=== PATIENT | female | born 1985 | race Two or more races ===

== ENCOUNTER 2016-07-20 09:56 | Emergency (ER) | payer OTHER ==
[~2016-07-20] VITALS: Ht 152.4 cm; Wt 79.4 kg
[~2016-07-20 09:56] MED LIST: IBUPROFEN600 MG ORAL; NORCO 5-325 TA1 EAC1 ORAL
[2016-07-20] MEDS ORDERED: NKM (10:15)
[2016-07-20 10:19] VITALS: BP 133/64
[2016-07-20] MEDS ORDERED: DiphenhydrAMINE 50mg/ml Inj IVP ONE (11:00)
[2016-07-20] MEDS ORDERED: Ketorolac 30mg Inj IV ONE (11:00)
--- NOTE | 2016-07-20 12:15 | Diagnostic Imaging Report ---
Indications: Back pain. Technique: 3 views of the lumbar spine Findings: Comparison: None Vertebral alignment is intact. No fracture, lytic destruction, or other acute changes are demonstrated. No degenerative changes, deformity, or other chronic changes are demonstrated. IMPRESSION: Negative lumbar spine series.
[2016-07-20] MEDS ORDERED: IBUPROFEN600 MG ORAL (13:49)
--- NOTE | 2016-07-20 13:50 | Emergency Room Report ---
History of Present Illness General Chief Complaint: Headache Source: Patient Present Illness HPI This patient states that she has a history of chronic and recurrent back pain. She states that she believes that is chronic nerve pain. She does not take any medications for the pain. She usually will rest or get a massage. She does occasionally get migraine headaches. She states that yesterday she developed a migraine headache and then her chronic nerve of her back and leg started bothering her. She states she is unable to get comfortable last night. She did not take any oral medications. She states that she does not like to take pills. She has gone to a chiropractor in the past. She states that the pain is in her back and radiates down her legs. She states the pain is occasionally worse on the right and radiates to her right knee. She also has had improvement in her headache but still continues to have a low-grade headache. She denies recent illness. She denies cough or congestion. She denies fever or chills. She denies dysuria or hematuria. She has no other complaints. Allergies: Coded Allergies: No Known Allergies (Unverified , 03/28/15) Patient History Past Medical History: see triage record, other - Chronic back pain Social History: Denies: alcohol use, drug use, smoking Last Menstrual Period: 2 weeks ago Reviewed Nursing Documentation: PMH: Agreed, PSxH: Agreed Nursing Documentation-[facility] Past Medical History: No History, Except For Hx Neurological Problems: Yes - Nerve pain, chronic back pain Review of Systems All Other Systems: negative except mentioned in HPI Physical Exam Vital Signs Date Time Temp Pulse Resp B/P Pulse Ox O2 Delivery O2 Flow Rate FiO2 07/20/16 10:07 98.2 102 18 133/64 95 Room Air Sp02 EP Interpretation: reviewed, normal General Appearance: no apparent distress, alert, GCS 15, non-toxic Head: normocephalic, atraumatic Eyes: bilateral eye PERRL, bilateral eye normal inspection ENT: hearing grossly normal, normal pharynx, no angioedema, normal voice Neck: full range of motion, supple/symm/no masses Respiratory: chest non-tender, lungs clear, normal breath sounds, speaking full sentences Cardiovascular #1: regular rate, rhythm, no edema Gastrointestinal: normal bowel sounds, non tender, soft, non-distended, no guarding, no rebound Rectal: deferred Musculoskeletal: back normal, normal range of motion, non-tender Neurologic: alert, oriented x3, responsive, motor strength/tone normal, sensory intact, speech normal Psychiatric: judgement/insight normal, memory normal, mood/affect normal, no suicidal/homicidal ideation Skin: normal color, no rash, warm/dry, well hydrated Medical Decision Making Diagnostic Impression: Primary Impression: Migraine Additional Impressions: Mechanical back pain Sciatica ER Course This patient presents with 2 complaints. She has a migraine headache and aggravation of her chronic low back pain with features consistent with sciatica. She hadn't ever had an image of her back, so I did obtain a lumbar spine x-ray. This was negative for acute findings. Educated the patient that she should followup with her primary care physician or an orthopedist. She may need to undergo MRI of her lumbar spine if she continues to have recurrent symptoms. This patient is a clinical presentation consistent with migraine. The patient was treated with Compazine, Benadryl, Toradol and 1 liter of normal saline. The patient had complete resolution of the headache. There were no red flags on physical exam or history. I do not suspect meningitis, intracranial bleed, sinusitis. No emergency medical condition was identified. The patient was given return precautions and followup instructions. This patient has a clinical presentation consistent with mechanical back pain. There are no red flags on physical exam. The patient denies any concerning features such as trauma, fevers, night sweats, history of malignancy, pain worse at night, IV drug abuse, urinary/fecal incontinence or retention, focal weakness or change in sensation, or refractory pain. Given these pertinent negatives in the history and physical exam an emergent cause of the back pain such as epidural abscess, metastasis to bone, cauda equina syndrome, and fracture is less likely. I also doubt emergent cardiovascular cause of back pain such as aortic dissection a ruptured abdominal aortic aneurysm given patient with equal pulses in all 4 extremities with no diastolic murmur or pulsatile abdominal mass. The patient was counseled that, though unlikely, the possibility of an emergent cause of back pain may still be present and that the patient should return immediately if symptoms persist or worsen. The symptoms are reproducible with movement. Patient had a benign evaluation and neurologic examination. No emergency etiology was identified. Labs Test 07/20/16 11:00 Urine HCG, Qualitative Negative Other X-Ray Diagnostic Results Other X-Ray Diagnostic Results : X-Ray Ordered: Lumbar spine xray EP Interpretation: No Findings: no fractures Number of Views: 4 Other Impression See official report Last Vital Signs Date Time Temp Pulse Resp B/P Pulse Ox O2 Delivery O2 Flow Rate FiO2 07/20/16 11:52 98.2 07/20/16 10:19 82 18 133/64 95 Room Air Disposition: HOME, SELF-CARE Condition: Improved Scripts Ibuprofen* (MOTRIN*) 600 Mg Tablet 600 MG ORAL Q8H Y for For Pain, #30 TAB 0 Refills Prov: RAYNA COBOS D.O. 07/20/16 [facility]: [facility]ERR[facility] (PCP[facility] Patient Instructions: Migraine Headache, Sciatica, [id number] RAYNA COBOS D.O. Jul 20, 2016 13:49
[2016-07-20 14:10] VITALS: BP 129/62
[2016-07-20 14:12] VITALS: BP 129/62
== END 2016-07-20 14:12 | disposition home or self-care (01) ==
LOC: EMR 10:30
DX: M54.30 Sciatica, unspecified side (principal); G43.909 Migraine, unspecified, not intractable, without status migrainosus
CPT/HCPCS: 72020; 81025; 96374; 96375; 99284; J0780; J1200; J1885

== ENCOUNTER 2016-07-22 12:30 | Emergency (ER) | payer MEDICAID, OTHER ==
[~2016-07-22] VITALS: Ht 152.4 cm; Wt 79.4 kg
[~2016-07-22 12:30] MED LIST changes: +NKM
[2016-07-22] MEDS ORDERED: Famotidine 20 MG/ 2ML VIAL IVP ONE (13:15)
[2016-07-22] MEDS ORDERED: DiphenhydrAMINE 50mg/ml Inj IV ONE (13:15)
[2016-07-22] MEDS ORDERED: PredniSONE 20mg tab ORAL ONE (13:15)
[2016-07-22 13:47] VITALS: BP 95/57
[2016-07-22] MEDS ORDERED: PREDNISONE20 M1 PO (14:13)
[2016-07-22] MEDS ORDERED: BENADRYL ALLERG25 M1 PO (14:13)
[2016-07-22 14:29] VITALS: BP 95/57
--- NOTE | 2016-07-22 21:30 | Emergency Room Report ---
History of Present Illness General Chief Complaint: Skin Rash/Abscess Source: Patient Present Illness HPI The patient is a 30-year-old female presenting with possible drug allergic reaction. The patient was seen in this emergency department 2 days prior for a migraine headache and was given Toradol, Benadryl, and Compazine. The patient states that she then went home and awoke the next morning with diffuse red rash which is described as itching. The patient states that she took a Benadryl and noticed some relief. The patient denies shortness of breath, wheezing, swelling , dizziness, diarrhea, nausea, vomiting, chest pain. The patient has never been diagnosed with any allergies. Allergies: Coded Allergies: No Known Allergies (Unverified , 03/28/15) Patient History Past Medical History: see triage record Pertinent Family History: none Last Menstrual Period: 07/06/16 Now: No Reviewed Nursing Documentation: PMH: Agreed, PSxH: Agreed Nursing Documentation-PM[facility] Past Medical History: No Stated History Hx Neurological Problems: Yes - Nerve pain, chronic back pain Review of Systems All Other Systems: negative except mentioned in HPI Physical Exam Vital Signs Date Time Temp Pulse Resp B/P Pulse Ox O2 Delivery O2 Flow Rate FiO2 07/22/16 12:48 98.2 16 95/57 100 Room Air 07/22/16 13:47 70 Sp02 EP Interpretation: reviewed, normal General Appearance: no apparent distress, alert, GCS 15, non-toxic Head: normocephalic, atraumatic Eyes: bilateral eye PERRL, bilateral eye normal inspection ENT: hearing grossly normal, normal pharynx, no angioedema, normal voice, uvula midline, moist mucus membranes Neck: full range of motion, supple/symm/no masses Respiratory: chest non-tender, lungs clear, normal breath sounds, no wheezing, speaking full sentences Cardiovascular #1: regular rate, rhythm, no edema Cardiovascular #2: 2+ carotid (R), 2+ carotid (L), 2+ radial (R), 2+ radial (L) , 2+ dorsalis pedis (R), 2+ dorsalis pedis (L) Gastrointestinal: normal bowel sounds, non tender, soft, non-distended, no guarding, no rebound Rectal: deferred Genitourinary: normal inspection, no CVA tenderness Musculoskeletal: back normal, gait/station normal, normal range of motion, non- tender Neurologic: alert, oriented x3, responsive, motor strength/tone normal, sensory intact, speech normal Psychiatric: judgement/insight normal, memory normal, mood/affect normal, no suicidal/homicidal ideation Reflexes: 3+ bicep (R), 3+ bicep (L), 3+ tricep (R), 3+ tricep (L), 3+ knee (R) , 3+ knee (L) Skin: normal color, no rash, warm/dry, well hydrated, rash - erythematous macular diffuse rash of extremeties and torso. No edema Lymphatic: no adenopathy Medical Decision Making PA Attestation Dr. Sawant is my supervising physician. Patient management was discussed with my supervising physician Diagnostic Impression: Primary Impression: Drug reaction ER Course The patient is a 30-year-old female presenting with possible drug allergic reaction. DDx: Drug reaction, cellulitis, contact or otitis PE: vitals WNL. NAD. Lungs are clear to auscultation bilaterally. Oropharynx is patent. No facial edema. Skin: warm, dry. erythematous macular diffuse rash of extremities and torso. No edema The patient is given Benadryl, prednisone, and Pepcid. Rashes decreased and the patient states that she is feeling better. The patient will be discharged home with a prescription for Benadryl and a short course of steroids. ER precautions are given and the patient will follow up with primary care physician. The patient will pursue allergen testing. Last Vital Signs Date Time Temp Pulse Resp B/P Pulse Ox O2 Delivery O2 Flow Rate FiO2 07/22/16 14:29 98.2 70 16 95/57 100 Room Air Status: improved Disposition: HOME, SELF-CARE Condition: Improved Scripts Prednisone (Prednisone) 20 Mg Tablet 20 MG PO DAILY, #5 TAB Prov: TERZIAN,FELICITA P.A. 07/22/16 Diphenhydramine Hcl (BENADRYL ALLERGY) 25 Mg Tablet 25 MG PO Q6HR, #20 TAB Prov: TERZIAN,FELICITA P.A. 07/22/16 Patient Instructions: Drug Allergy Additional Instructions: I discussed my findings with the patient. All questions and concerns have been answered. Treatment and medication compliance have been addressed. I advised the patient that they need to follow up with PMD in 3-5 days. Return to ED if symptoms worsen, new symptoms arise, or if needed for any reason. Patient verbalized understanding of discharge instructions. The patient will follow up with PMD and possibly feeder associate. FELICITA LYON Jul 22, 2016 21:30
== END 2016-07-22 14:31 | disposition home or self-care (01) ==
LOC: EMR 13:10
DX: T50.905A Adverse effect of unspecified drugs, medicaments and biological substances, initial encounter (principal); G89.29 Other chronic pain; Y92.9 Unspecified place or not applicable; Y99.8 Other external cause status
CPT/HCPCS: 96374; 96375; 99284; J1200; S0028

== ENCOUNTER 2018-06-25 09:22 | Emergency (ER) | payer MEDICAID ==
[~2018-06-25] VITALS: Ht 152.4 cm; Wt 83.9 kg
[~2018-06-25 09:22] MED LIST changes: +BENADRYL ALLERG25 M1 PO; +PREDNISONE20 M1 PO
[2018-06-25] MEDS ORDERED: ACETAMINOPHEN-1 EAC1 ORAL (09:51)
[2018-06-25] MEDS ORDERED: AUGMENTIN 875-1 EAC1 ORAL (09:51)
[2018-06-25 09:59] VITALS: BP 114/69
[2018-06-25] MEDS ORDERED: Augmentin 875mg Tab ORAL ONE (10:00)
[2018-06-25] MEDS ORDERED: Tylenol #3 tab (300mg/30mg) ORAL ONE (10:00)
[2018-06-25 10:01] VITALS: BP 114/69
--- NOTE | 2018-06-25 10:52 | Emergency Room Report ---
History of Present Illness General Chief Complaint: Toothache Source: Patient Present Illness HPI 32-year-old female presents ED for evaluation. Complaining of left-sided tooth pain 2 days. Localized to left lower jaw. 10 out of 10, throbbing, radiating through the face. Denies fevers or chills. Denies any discharge. she has a dentist appointment for next week with pain is getting worse despite over-the- counter Aleve. Denies neck stiffness. No other aggravating relieving factors. Denies any other associated symptoms Allergies: Coded Allergies: No Known Allergies (Unverified , 03/28/15) Patient History Past Medical History: none Past Surgical History: none Pertinent Family History: none Social History: Denies: smoking, alcohol use, drug use Last Menstrual Period: on period Now: No Immunizations: UTD Reviewed Nursing Documentation: PMH: Agreed; PSxH: Agreed Nursing Documentation-PMH Past Medical History: No Stated History Hx Neurological Problems: Yes - Nerve pain, chronic back pain Review of Systems All Other Systems: negative except mentioned in HPI Physical Exam Vital Signs Date Time Temp Pulse Resp B/P (MAP) Pulse Ox O2 Delivery O2 Flow Rate FiO2 06/25/18 09:35 98.1 67 14 114/69 99 Room Air Sp02 EP Interpretation: reviewed, normal General Appearance: no apparent distress, alert, GCS 15, non-toxic Head: normocephalic Eyes: bilateral eye normal inspection, bilateral eye PERRL ENT: hearing grossly normal, normal pharynx, no angioedema, normal voice, TMs + canals normal - TTP L lower wisdom tooth. no surrounding fluctuance or discharge, other Neck: full range of motion, supple, no meningismus, supple/symm/no masses Respiratory: normal inspection Cardiovascular #1: normal inspection Gastrointestinal: normal inspection Rectal: deferred Genitourinary: no CVA tenderness Musculoskeletal: normal inspection Neurologic: alert, oriented x3, responsive, motor strength/tone normal, sensory intact, speech normal Psychiatric: normal inspection Skin: normal inspection Lymphatic: normal inspection Medical Decision Making Diagnostic Impression: Primary Impression: Toothache ER Course 32-year-old female presents ED complaining of tooth pain. Cracked tooth, dental abscess, cavity Patient placed on stretcher. After initial history, physical exam reveals a young female in mild distress. On exam there appears to be an erupting wisdom tooth in the left lower jaw. No surrounding abscess. No induration or swelling. Discussed findings with patient. Given Tylenol No. 3, Augmentin here. We'll discharge her pain meds and antibiotics. Patient is to see dentist this week Diagnosis- tootache Stable and discharged to home prescription for tylenol #3, augmentin. Instructed to see dentist as a walk-in this week. Return to ED if symptoms recur or worse Last Vital Signs Date Time Temp Pulse Resp B/P (MAP) Pulse Ox O2 Delivery O2 Flow Rate FiO2 06/25/18 10:02 98.1 06/25/18 10:01 78 16 114/69 99 Room Air Status: improved Disposition: HOME, SELF-CARE Condition: Stable Scripts Amoxicillin/Potassium Clav 875-125* (AUGMENTIN 875-125 TABLET*) 1 Each Tablet 1 TAB ORAL TWICE A DAY, #14 TAB Prov: Octavio Orozco MD 06/25/18 Acetaminophen With Codeine (T#3) (TYLENOL #3 TAB*) Y Tab 1 TAB ORAL Q8H PRN for For Pain for 3 Days, TAB Prov: Octavio Orozco MD 06/25/18 [facility] INFO: New Patient Screening: Sun- 8am-1pm Sun- 9am -5pm and Sun 2pm-5pm [facility] Pediatrics(age 2-12) - Orthodontic Clinic - Hours: Sun,Sun,, 8:15am and 1pm (new patient screening), Tu. 1pm. Emergency clinic Sunday - Sunday 8:30am and 1pm, Tues. 1pm. *Call to check if clinic is open; No appointment necessary for the first visit ( new patient screening), Arrive 15-30 minutes early as it is first come, first serve. Patient Instructions: Pericoronitis Octavio Orozco MD Jun 25, 2018 10:52
== END 2018-06-25 10:05 | disposition home or self-care (01) ==
LOC: EMR 09:49
DX: K08.89 Other specified disorders of teeth and supporting structures (principal); G89.29 Other chronic pain; M54.9 Dorsalgia, unspecified
CPT/HCPCS: 99283